=== PATIENT | male | born 1970 | race African-American/Black ===

== ENCOUNTER 2019-04-11 11:24 | Inpatient (IN) | payer MEDICAID ==
[~2019-04-11] VITALS: Ht 177.8 cm; Wt 79.8 kg
[~2019-04-11 11:24] MED LIST: AMLO5TAB88 PO; AZIT250T12 PO; CLON0.2T PO; CYCL5TAB PO; DEXL60CA3 PO; ESOM20CA PO; FOLI1TAB87 PO; GUAI120015 PO; LABE300T3 PO; MONT10TA24 PO; PANT40TA4 PO; REN800 PO; TRAM50TA3 PO
[2019-04-11] MEDS ORDERED: BACITRACIN 15GM TUBE TOP ONE (12:29)
[2019-04-11] MEDS ORDERED: LIDOCAINE HCL 1% 20ML VIAL (Pyxis) INJ ONE ×2 (12:29→15:39)
[2019-04-11] MEDS ORDERED: PAPAVERINE HCL 30 MG/ML 2ML IV ONE (12:29)
[2019-04-11] MEDS ORDERED: THROMBIN (BOVINE) 5000 UNITS/VIAL TOP ONE (12:30)
[2019-04-11] MEDS ORDERED: HEPARIN SODIUM 1,000 UNIT/1ML VIAL IV ONE (12:30)
[2019-04-11] MEDS ORDERED: BUPIVACAINE HCL/PF 0.5% (5MG/ML) 10ML ONE (12:31)
[2019-04-11] MEDS ORDERED: BACITRACIN 50,000 UNITS/VIAL ONE (12:31)
[2019-04-11] MEDS ORDERED: HEPARIN 5000 UNITS/ML VIAL ONE (12:34)
[2019-04-11 12:39] LABS: BASOPHILS % 0.9 % (0.0-2.0); EOSINOPHILS % 2.8 % (0.0-5.0); HEMATOCRIT. 28.8 % (42.0-52.0); HEMOGLOBIN. 9.5 g/dL (14.0-18.0); LYMPHOCYTES % 15.8 % (20.0-50.0); MEAN CORPUSCULAR VOLUME 91.5 fL (80.0-94.0); MEAN PLATELET VOLUME 7.4 fl (7.4-10.4); NEUTROPHILS % 68.5 % (40.0-76.0); PLATELET 189 x1000/uL (130-400); RED BLOOD CELL COUNT 3.15 mill/uL (4.7-6.1); RED CELL DISTRIBUTION WIDTH 22.3 % (11.6-14.6)
[2019-04-11 12:46] LABS: CHLORIDE 96 mEq/L (98-107)
[2019-04-11 12:51] LABS: INR 1.1; PROTHROMBIN TIME 11.5 sec (9.6-11.0)
[2019-04-11 12:55] LABS: PLATELET ESTIMATE NORMAL
[2019-04-11] MEDS ORDERED: ONDANSETRON HCL 4MG/2ML INJ IV PRN (13:00)
[2019-04-11] MEDS ORDERED: CALCIUM GLUCONATE 1,000 MG in DEXT 5% WATER 100 ML IV ONE (13:00)
[2019-04-11] MEDS ORDERED: DEXTROSE 50% WATER 50ML SYRINGE IV ONE (13:00)
[2019-04-11] MEDS ORDERED: SODIUM BICARBONATE 8.4% 1 MEQ/ML 50ML SYR IV ONE (13:00)
[2019-04-11] MEDS ORDERED: INSULIN REGULAR (HUMULIN R) 300UNITS/3ML IV ONE (13:00)
[2019-04-11] MEDS: ALBUTEROL (0.083%) 2.5MG/3ML NEB HHN SCH ×2 (13:15→13:49)
[2019-04-11 15:00] VITALS: BP 174/76
[2019-04-11 16:00] VITALS: BP 155/79
[2019-04-11] MEDS: HYDRALAZINE 20MG/ML VIAL IV PRN (16:52)
[2019-04-11] MEDS: NIFEDIPINE XL 60MG TAB PO SCH (18:00)
[2019-04-11 20:00] VITALS: BP 164/87
[2019-04-11] MEDS: CLONIDINE 0.1MG TABLET PO PRN (20:57)
[2019-04-12] VITALS: BP 176/96
[2019-04-12] MEDS: HYDRALAZINE 20MG/ML VIAL IV PRN (02:08)
[2019-04-12] MEDS: ACETAMINOPHEN 325MG TABLET PO PRN ×2 (02:09→09:36)
[2019-04-12 04:00] VITALS: BP 182/80
[2019-04-12] MEDS: CLONIDINE 0.1MG TABLET PO PRN ×2 (05:51→09:35)
[2019-04-12 07:47] LABS: BASOPHILS % 0.9 % (0.0-2.0); EOSINOPHILS % 2.6 % (0.0-5.0); HEMATOCRIT. 30.3 % (42.0-52.0); HEMOGLOBIN. 9.9 g/dL (14.0-18.0); LYMPHOCYTES % 17.7 % (20.0-50.0); MEAN CORPUSCULAR HEMOGLOBIN 29.6 pg (28.0-32.0); MEAN CORPUSCULAR VOLUME 90.8 fL (80.0-94.0); MEAN PLATELET VOLUME 7.4 fl (7.4-10.4); MONOCYTES % 10.7 % (2.0-8.0); NEUTROPHILS % 68.1 % (40.0-76.0); PLATELET 186 x1000/uL (130-400); RED BLOOD CELL COUNT 3.34 mill/uL (4.7-6.1); RED CELL DISTRIBUTION WIDTH 21.9 % (11.6-14.6)
[2019-04-12 08:00] VITALS: BP 191/84
[2019-04-12] MEDS: NIFEDIPINE XL 60MG TAB PO SCH ×2 (09:35→23:07)
[2019-04-12 12:00] VITALS: BP 171/92
[2019-04-12] MEDS ORDERED: HEPARIN 5000 UNITS/ML VIAL ONE (14:30)
[2019-04-12] MEDS ORDERED: HEPARIN SODIUM 1,000 UNIT/1ML VIAL IV ONE ×2 (14:32→19:04)
[2019-04-12] MEDS ORDERED: BACITRACIN 15GM TUBE TOP ONE (14:32)
[2019-04-12] MEDS ORDERED: LIDOCAINE HCL 1% 20ML VIAL (Pyxis) INJ ONE (14:32)
[2019-04-12] MEDS ORDERED: BUPIVACAINE HCL/PF 0.5% (5MG/ML) 10ML ONE (14:33)
[2019-04-12] MEDS ORDERED: BACITRACIN 50,000 UNITS/VIAL ONE (14:33)
[2019-04-12] MEDS ORDERED: THROMBIN (BOVINE) 5000 UNITS/VIAL TOP ONE (14:33)
[2019-04-12] MEDS ORDERED: PAPAVERINE HCL 30 MG/ML 2ML IV ONE (14:34)
[2019-04-12] MEDS: LOSARTAN POTASSIUM 100 MG TABLET PO SCH (14:58)
[2019-04-12] MEDS ORDERED: BUPIVACAINE HCL/EPINEPHRINE 0.5%/0.0005 30ML ONE (16:02)
[2019-04-12] MEDS ORDERED: LIDOCAINE HCL/PF 1% 10 MG/ML 5ML VIAL ONE (17:25)
[2019-04-12] MEDS ORDERED: CEFAZOLIN SODIUM 1000MG/VIAL ONE (17:25)
[2019-04-12] MEDS ORDERED: FENTANYL CITRATE/PF 50MCG/ML 2ML VIAL ONE ×2 (17:38→19:33)
[2019-04-12] MEDS ORDERED: MIDAZOLAM HCL 2 MG/2 ML VIAL ONE (17:39)
[2019-04-12] MEDS ORDERED: PROPOFOL 200MG/20ML VIAL IV ONE ×3 (17:39→18:21)
[2019-04-12] MEDS ORDERED: ONDANSETRON HCL 4MG/2ML INJ ONE (17:41)
[2019-04-12] MEDS ORDERED: GLYCOPYRROLATE 0.2 MG/ML 2ML VIAL ONE (18:09)
[2019-04-12] MEDS ORDERED: ESMOLOL HCL 10MG/ML 10ML VIAL IV ONE (18:10)
[2019-04-12] MEDS ORDERED: SODIUM CHLORIDE 0.9% 10ML VIAL ONE (18:45)
[2019-04-12] MEDS ORDERED: PHENYLEPHRINE HCL 10 MG/ML 1ML (IV VIAL) IV ONE (18:45)
[2019-04-12] MEDS ORDERED: MEPERIDINE HCL/PF 25MG/ML CPJ IV PRN (20:00)
[2019-04-12] MEDS ORDERED: HYDROMORPHONE HCL/PF 2MG/ML CPJ IV PRN (20:00)
[2019-04-12] MEDS ORDERED: ONDANSETRON HCL 4MG/2ML INJ IV PRN (20:00)
[2019-04-12 21:00] VITALS: BP 151/85
[2019-04-12] MEDS: HYDROCODONE/ACETAMINOPHEN 5/325MG TABLET PO PRN (23:08)
[2019-04-13] VITALS: BP 155/89
[2019-04-13 04:30] VITALS: BP 174/93
[2019-04-13] MEDS: HYDROCODONE/ACETAMINOPHEN 5/325MG TABLET PO PRN ×3 (05:14→15:56)
[2019-04-13] MEDS: CLONIDINE 0.1MG TABLET PO PRN (05:15)
[2019-04-13 08:00] VITALS: BP 163/82
[2019-04-13] MEDS: LOSARTAN POTASSIUM 100 MG TABLET PO SCH (09:00)
[2019-04-13] MEDS: NIFEDIPINE XL 60MG TAB PO SCH (09:00)
[2019-04-13 11:48] LABS: BASOPHILS % 0.5 % (0.0-2.0); EOSINOPHILS % 1.7 % (0.0-5.0); HEMATOCRIT. 28.3 % (42.0-52.0); HEMOGLOBIN. 9.2 g/dL (14.0-18.0); LYMPHOCYTES % 7.8 % (20.0-50.0); MEAN CORPUSCULAR HEMOGLOBIN 29.3 pg (28.0-32.0); MEAN CORPUSCULAR VOLUME 90.3 fL (80.0-94.0); MEAN PLATELET VOLUME 7.2 fl (7.4-10.4); MONOCYTES % 8.1 % (2.0-8.0); NEUTROPHILS % 81.9 % (40.0-76.0); PLATELET 186 x1000/uL (130-400); RED BLOOD CELL COUNT 3.13 mill/uL (4.7-6.1); RED CELL DISTRIBUTION WIDTH 22.2 % (11.6-14.6)
[2019-04-13 12:00] VITALS: BP 173/87
[2019-04-13 16:00] VITALS: BP 159/89
[2019-04-13 17:58] VITALS: BP 150/82
[2019-04-13] MEDS ORDERED: HYDRALAZINE HCL 50MG TABLET PO SCH (21:00)
== END 2019-04-13 19:09 | disposition home or self-care (01) | DRG 180 ==
LOC: ER 11:24 → EDBEDREQ 12:40 → ENRESERV 12:54 → 6WST 12:55 → EDBEDREQ 12:57 → EDBEDREQTM 12:58
PROVIDERS: ADMIT Internal Medicine; ATTEND Internal Medicine
PROC: 5A1D70Z Performance of Urinary Filtration, Intermittent, Less than 6 Hours Per Day (ICD-10-PCS; 2019-04-11)
PROC: 02HV33Z Insertion of Infusion Device into Superior Vena Cava, Percutaneous Approach (ICD-10-PCS; 2019-04-11)
PROC: 03180KD Bypass Left Brachial Artery to Upper Arm Vein with Nonautologous Tissue Substitute, Open Approach (ICD-10-PCS; principal; 2019-04-12)
PROC: 5A1D70Z Performance of Urinary Filtration, Intermittent, Less than 6 Hours Per Day (ICD-10-PCS; 2019-04-12)
DX: T82.838A Hemorrhage due to vascular prosthetic devices, implants and grafts, initial encounter (principal); E11.22 Type 2 diabetes mellitus with diabetic chronic kidney disease; E11.51 Type 2 diabetes mellitus with diabetic peripheral angiopathy without gangrene; T82.510A Breakdown (mechanical) of surgically created arteriovenous fistula, initial encounter; T82.858A Stenosis of other vascular prosthetic devices, implants and grafts, initial encounter; I12.0 Hypertensive chronic kidney disease with stage 5 chronic kidney disease or end stage renal disease; E87.5 Hyperkalemia; N18.6 End stage renal disease; Y82.8 Other medical devices associated with adverse incidents; E87.8 Other disorders of electrolyte and fluid balance, not elsewhere classified; E44.1 Mild protein-calorie malnutrition; D63.8 Anemia in other chronic diseases classified elsewhere; F17.210 Nicotine dependence, cigarettes, uncomplicated; G40.909 Epilepsy, unspecified, not intractable, without status epilepticus; Z68.25 Body mass index [BMI] 25.0-25.9, adult; Y92.89 Other specified places as the place of occurrence of the external cause; Z99.2 Dependence on renal dialysis; Z91.018 Allergy to other foods; Z79.899 Other long term (current) drug therapy
CPT/HCPCS: 36415; 71045; 77001; 80048; 84132; 86850; 86900; 87070; 87075; 87077; 87186; 88304; 93005; 94640; 96374; 99291; C1752; C1768; C1769; J0171; J0360; J0610; J0690; J1644; J1815; J2250; J2370; J2405; J2440; J2704; J3010; J3490; J7060; J7611; L3670

== ENCOUNTER 2019-04-15 17:43 | Emergency (ER) | payer MEDICAID, OTHER ==
[~2019-04-15] VITALS: Ht 175.3 cm; Wt 70.0 kg
[~2019-04-15 17:43] MED LIST changes: -AZIT250T12 PO
[2019-04-15 17:56] VITALS: BP 146/82
[2019-04-15 19:41] LABS: HEMATOCRIT. 26.5 % (42.0-52.0); HEMOGLOBIN. 8.8 g/dL (14.0-18.0); MEAN CORPUSCULAR HEMOGLOBIN 29.9 pg (28.0-32.0); MEAN PLATELET VOLUME 7.4 fl (7.4-10.4); PLATELET 153 x1000/uL (130-400); RED BLOOD CELL COUNT 2.94 mill/uL (4.7-6.1); RED CELL DISTRIBUTION WIDTH 21.5 % (11.6-14.6)
[2019-04-15 19:45] LABS: INR 1.1; PARTIAL THROMBOPLASTIN TIME 34.7 sec (23.4-31.0); PROTHROMBIN TIME 11.8 sec (9.6-11.0)
[2019-04-15 20:05] LABS: PLATELET ESTIMATE NORMAL
== END 2019-04-15 20:33 | disposition home or self-care (01) ==
LOC: ER 17:43
DX: T82.838A Hemorrhage due to vascular prosthetic devices, implants and grafts, initial encounter (principal); Y82.8 Other medical devices associated with adverse incidents; Y92.89 Other specified places as the place of occurrence of the external cause
CPT/HCPCS: 36415; 80048; 99283

== ENCOUNTER 2019-04-17 15:54 | Emergency (ER) | payer MEDICAID, OTHER ==
[~2019-04-17] VITALS: Ht 177.8 cm; Wt 74.0 kg
[2019-04-17] MEDS ORDERED: LIDOCAINE HCL/EPINEPHRINE 1%-EPI 1:100,000 30 ML VIAL INFIL ONE (18:00)
[2019-04-17 19:14] LABS: CHLORIDE 97 mEq/L (98-107)
[2019-04-17 19:15] LABS: BASOPHILS % 1.1 % (0.0-2.0); HEMATOCRIT. 24.5 % (42.0-52.0); HEMOGLOBIN. 8.1 g/dL (14.0-18.0); INR 1.2; LYMPHOCYTES % 9.1 % (20.0-50.0); MEAN CORPUSCULAR HEMOGLOBIN 29.8 pg (28.0-32.0); MEAN CORPUSCULAR VOLUME 89.8 fL (80.0-94.0); MEAN PLATELET VOLUME 7.7 fl (7.4-10.4); MONOCYTES % 10.9 % (2.0-8.0); NEUTROPHILS % 76.9 % (40.0-76.0); PLATELET 195 x1000/uL (130-400); PROTHROMBIN TIME 11.9 sec (9.6-11.0); RED BLOOD CELL COUNT 2.72 mill/uL (4.7-6.1); RED CELL DISTRIBUTION WIDTH 21.2 % (11.6-14.6)
[2019-04-17] MEDS ORDERED: LIDOCAINE HCL/EPINEPHRINE 1%-EPI 1:100,000 20 ML VIAL INFIL NR (19:30)
[2019-04-17] MEDS ORDERED: CALCIUM GLUCONATE 1,000 MG in DEXT 5% WATER 100 ML IV ONE (20:30)
[2019-04-17] MEDS ORDERED: INSULIN REGULAR (HUMULIN R) 300UNITS/3ML IV ONE (20:30)
[2019-04-17] MEDS ORDERED: DEXTROSE 50% WATER 50ML SYRINGE IV ONE (20:30)
[2019-04-17] MEDS ORDERED: SODIUM POLYSTYRENE SULFONATE 15 G/60 ML BOT PO ONE (20:30)
[2019-04-18 01:03] VITALS: BP 179/93
== END 2019-04-18 01:05 | disposition home or self-care (01) ==
LOC: ER 15:54
DX: T82.838A Hemorrhage due to vascular prosthetic devices, implants and grafts, initial encounter (principal); Y82.8 Other medical devices associated with adverse incidents; Y92.89 Other specified places as the place of occurrence of the external cause; I12.0 Hypertensive chronic kidney disease with stage 5 chronic kidney disease or end stage renal disease; N18.6 End stage renal disease; Z99.2 Dependence on renal dialysis
CPT/HCPCS: 36415; 73060; 80053; 82962; 85025; 85610; 93005; 99284; J0610; J1815; J3490; J7060

== ENCOUNTER 2019-04-23 19:30 | Inpatient (IN) | payer OTHER ==
[~2019-04-23] VITALS: Ht 177.8 cm; Wt 74.8 kg
[2019-04-23 19:30] VITALS: BP 121/81
[2019-04-23 19:35] VITALS: BP 121/81
[2019-04-23] MEDS ORDERED: ACETAMINOPHEN 325MG TABLET PO PRN (23:00)
[2019-04-23] MEDS ORDERED: ONDANSETRON HCL 4MG/2ML INJ IV PRN (23:00)
[2019-04-24] VITALS (9 sets, daily range): BP systolic 130–165; BP diastolic 67–81
[2019-04-24] MEDS: MORPHINE SULFATE 2 MG/ML CPJ (NOT FOR IM USE) IV PRN ×2 (00:05→06:55)
[2019-04-24 02:31] LABS: BASOPHILS % 0.5 % (0.0-2.0); LYMPHOCYTES % 9.1 % (20.0-50.0); MEAN CORPUSCULAR HEMOGLOBIN 28.6 pg (28.0-32.0); MEAN CORPUSCULAR VOLUME 87.2 fL (80.0-94.0); MEAN PLATELET VOLUME 7.3 fl (7.4-10.4); MONOCYTES % 9.1 % (2.0-8.0); NEUTROPHILS % 80.3 % (40.0-76.0); PLATELET 181 x1000/uL (130-400); RED BLOOD CELL COUNT 2.37 mill/uL (4.7-6.1); RED CELL DISTRIBUTION WIDTH 20.9 % (11.6-14.6)
[2019-04-24 02:38] LABS: HEMATOCRIT. 20.6 % (42.0-52.0); HEMOGLOBIN. 6.8 g/dL (14.0-18.0)
[2019-04-24 02:45] LABS: INR 1.2; PROTHROMBIN TIME 12.3 sec (9.6-11.0)
[2019-04-24] MEDS ORDERED: CLONIDINE 0.1MG TABLET PO PRN (03:45)
[2019-04-24] MEDS: DEXT 5%/0.45% NACL 1000ML 1,000 ML IV SCH (05:17)
[2019-04-24] MEDS: OMEPRAZOLE 20MG CAPSULE EXTENDED RELEASE PO SCH (07:10)
[2019-04-24] MEDS: SEVELAMER CARBONATE 800 MG TABLET PO SCH ×3 (07:40→17:40)
[2019-04-24] MEDS ORDERED: PNEUMOCOCCAL 23-VAL P-SAC VAC 0.5 ML IM ONE (08:00)
[2019-04-24] MEDS: FOLIC ACID/VITAMIN B COMP W-C TABLET PO SCH (09:00)
[2019-04-24] MEDS: AMLODIPINE 10MG TABLET PO SCH ×2 (09:00→20:55)
[2019-04-24] MEDS ORDERED: HYDROMORPHONE HCL/PF 2MG/ML CPJ IV PRN ×2 (09:15→18:45)
[2019-04-24] MEDS ORDERED: VANCOMYCIN 1500MG in DEXTROSE 5% WATER 250ML IV NR (10:30)
[2019-04-24] MEDS ORDERED: LEVOFLOXACIN 250MG PREMIX 50 ML IV SCH (11:00)
[2019-04-24] MEDS ORDERED: LEVOFLOXACIN 750MG PREMIX 150 ML IV SCH (12:15)
[2019-04-24 12:41] LABS: HEMATOCRIT 24.9 % (42.0-52.0); HEMOGLOBIN 8.2 g/dL (14.0-18.0)
[2019-04-24] MEDS: LEVOFLOXACIN 500MG PREMIX 100 ML IV SCH (14:00)
[2019-04-24] MEDS ORDERED: LIDOCAINE HCL 1% 20ML VIAL (Pyxis) INJ ONE (14:00)
[2019-04-24] MEDS: LABETALOL HCL 300MG TABLET PO SCH ×2 (14:00→21:00)
[2019-04-24] MEDS ORDERED: BUPIVACAINE HCL/PF 0.5% (5MG/ML) 10ML ONE (14:01)
[2019-04-24] MEDS ORDERED: HEPARIN SODIUM 1,000 UNIT/1ML VIAL IV ONE (14:01)
[2019-04-24] MEDS ORDERED: BACITRACIN 50,000 UNITS/VIAL ONE (14:01)
[2019-04-24] MEDS ORDERED: THROMBIN (BOVINE) 5000 UNITS/VIAL TOP ONE ×2 (14:01→17:40)
[2019-04-24] MEDS ORDERED: MIDAZOLAM HCL 2 MG/2 ML VIAL ONE (15:48)
[2019-04-24] MEDS ORDERED: FENTANYL CITRATE/PF 50MCG/ML 2ML VIAL ONE (15:48)
[2019-04-24] MEDS ORDERED: PROPOFOL 200MG/20ML VIAL IV ONE (15:48)
[2019-04-24] MEDS ORDERED: SODIUM CHLORIDE 0.9% 10ML VIAL ONE (15:49)
[2019-04-24] MEDS ORDERED: ROCURONIUM BROMIDE 10MG/ML VIAL 5ML IV ONE (15:49)
[2019-04-24] MEDS ORDERED: EPHEDRINE SULFATE 50MG/ML VIAL ONE (15:49)
[2019-04-24] MEDS ORDERED: PHENYLEPHRINE HCL 10 MG/ML 1ML (IV VIAL) IV ONE (15:52)
[2019-04-24] MEDS ORDERED: BACITRACIN 15GM TUBE TOP ONE (15:57)
[2019-04-24] MEDS ORDERED: CEFAZOLIN SODIUM 1000MG/VIAL ONE (16:56)
[2019-04-24] MEDS ORDERED: ONDANSETRON HCL 4MG/2ML INJ ONE (17:46)
[2019-04-24] MEDS ORDERED: MEPERIDINE HCL/PF 25MG/ML CPJ IV PRN (18:45)
[2019-04-24] MEDS ORDERED: LABETALOL 5MG/ML SYR 20 MG/4 ML SYRINGE IV PRN (18:45)
[2019-04-24] MEDS ORDERED: ONDANSETRON HCL 4MG/2ML INJ IV PRN (18:45)
[2019-04-25] VITALS: BP 145/81
[2019-04-25] MEDS: DEXT 5%/0.45% NACL 1000ML 1,000 ML IV SCH ×2 (00:30→20:34)
[2019-04-25] MEDS: EPOETIN ALFA 10000UNITS/ML VIAL SUBCUT SCH (00:38)
[2019-04-25] MEDS: HYDROMORPHONE HCL/PF 2MG/ML CPJ IV PRN ×3 (03:23→20:38)
[2019-04-25 04:00] VITALS: BP 134/76
[2019-04-25 06:52] LABS: BASOPHILS % 0.6 % (0.0-2.0); EOSINOPHILS % 1.4 % (0.0-5.0); HEMATOCRIT. 22.1 % (42.0-52.0); HEMOGLOBIN. 7.3 g/dL (14.0-18.0); LYMPHOCYTES % 7.1 % (20.0-50.0); MEAN CORPUSCULAR HEMOGLOBIN 29.3 pg (28.0-32.0); MEAN CORPUSCULAR VOLUME 89.2 fL (80.0-94.0); MEAN PLATELET VOLUME 7.3 fl (7.4-10.4); MONOCYTES % 7.9 % (2.0-8.0); PLATELET 201 x1000/uL (130-400); RED BLOOD CELL COUNT 2.48 mill/uL (4.7-6.1); RED CELL DISTRIBUTION WIDTH 20.3 % (11.6-14.6)
[2019-04-25] MEDS: OMEPRAZOLE 20MG CAPSULE EXTENDED RELEASE PO SCH (06:52)
[2019-04-25] MEDS: LABETALOL HCL 300MG TABLET PO SCH ×3 (06:52→21:05)
[2019-04-25 08:00] VITALS: BP 145/77
[2019-04-25] MEDS: SEVELAMER CARBONATE 800 MG TABLET PO SCH ×3 (08:26→16:20)
[2019-04-25] MEDS: FOLIC ACID/VITAMIN B COMP W-C TABLET PO SCH (08:26)
[2019-04-25] MEDS: AMLODIPINE 10MG TABLET PO SCH ×2 (09:19→20:35)
[2019-04-25 12:00] VITALS: BP 138/75
[2019-04-25 16:00] VITALS: BP 148/82
[2019-04-25 18:00] LABS: HEMATOCRIT 22.2 % (42.0-52.0); HEMOGLOBIN 7.4 g/dL (14.0-18.0); MEAN CORPUSCULAR HEMOGLOBIN 29.9 pg (28.0-32.0); PLATELET 194 x1000/uL (130-400); RED BLOOD CELL COUNT 2.47 mill/uL (4.7-6.1); RED CELL DISTRIBUTION WIDTH 20.6 % (11.6-14.6)
[2019-04-25 20:00] VITALS: BP 153/80
[2019-04-26] VITALS (10 sets, daily range): BP systolic 118–174; BP diastolic 67–92
[2019-04-26] MEDS: HYDROMORPHONE HCL/PF 2MG/ML CPJ IV PRN ×3 (00:45→20:31)
[2019-04-26] MEDS: DIPHENHYDRAMINE 50MG/ML VIAL IM PRN ×2 (00:46→14:42)
[2019-04-26] MEDS: LABETALOL HCL 300MG TABLET PO SCH ×3 (05:38→21:43)
[2019-04-26] MEDS: OMEPRAZOLE 20MG CAPSULE EXTENDED RELEASE PO SCH (05:58)
[2019-04-26] MEDS: FOLIC ACID/VITAMIN B COMP W-C TABLET PO SCH (08:36)
[2019-04-26] MEDS: SEVELAMER CARBONATE 800 MG TABLET PO SCH ×3 (08:36→18:01)
[2019-04-26] MEDS: AMLODIPINE 10MG TABLET PO SCH ×2 (08:38→21:44)
[2019-04-26 11:22] LABS: BASOPHILS % 0.6 % (0.0-2.0); EOSINOPHILS % 2.7 % (0.0-5.0); LYMPHOCYTES % 9.4 % (20.0-50.0); MEAN CORPUSCULAR HEMOGLOBIN 29.7 pg (28.0-32.0); MEAN CORPUSCULAR VOLUME 88.9 fL (80.0-94.0); MEAN PLATELET VOLUME 7.1 fl (7.4-10.4); MONOCYTES % 8.9 % (2.0-8.0); NEUTROPHILS % 78.4 % (40.0-76.0); PLATELET 217 x1000/uL (130-400); RED BLOOD CELL COUNT 2.29 mill/uL (4.7-6.1); RED CELL DISTRIBUTION WIDTH 20.4 % (11.6-14.6)
[2019-04-26 11:36] LABS: HEMATOCRIT. 20.4 % (42.0-52.0); HEMOGLOBIN. 6.8 g/dL (14.0-18.0)
[2019-04-26] MEDS ORDERED: HEPARIN SODIUM 1,000 UNIT/1ML VIAL IV NR (15:15)
[2019-04-26] MEDS ORDERED: VANCOMYCIN 1 G PREMIX 200 ML IV NR (18:00)
[2019-04-26] MEDS: LEVOFLOXACIN 500MG PREMIX 100 ML IV SCH (18:02)
[2019-04-26] MEDS: DEXT 5%/0.45% NACL 1000ML 1,000 ML IV SCH (18:02)
[2019-04-26] MEDS: EPOETIN ALFA 10000UNITS/ML VIAL SUBCUT SCH (21:00)
[2019-04-27] MEDS: DIPHENHYDRAMINE 50MG/ML VIAL IM PRN (00:53)
[2019-04-27 00:54] VITALS: BP 119/82
[2019-04-27] MEDS: HYDROMORPHONE HCL/PF 2MG/ML CPJ IV PRN (00:54)
== END 2019-04-27 04:30 | disposition left against medical advice (07) | DRG 182 ==
LOC: 6EST 19:30 → UNDOADMIN 19:30 → 8 EST A/PP 20:55 → 8WST 21:25
PROVIDERS: ADMIT Internal Medicine; ATTEND Internal Medicine
PROC: 5A1D70Z Performance of Urinary Filtration, Intermittent, Less than 6 Hours Per Day (ICD-10-PCS; 2019-04-24)
PROC: 03L80ZZ Occlusion of Left Brachial Artery, Open Approach (ICD-10-PCS; principal; 2019-04-25)
PROC: 30233N1 Transfusion of Nonautologous Red Blood Cells into Peripheral Vein, Percutaneous Approach (ICD-10-PCS; 2019-04-25)
PROC: 03PY0JZ Removal of Synthetic Substitute from Upper Artery, Open Approach (ICD-10-PCS; 2019-04-25)
PROC: 05LC0ZZ Occlusion of Left Basilic Vein, Open Approach (ICD-10-PCS; 2019-04-25)
PROC: 05PY0JZ Removal of Synthetic Substitute from Upper Vein, Open Approach (ICD-10-PCS; 2019-04-25)
PROC: 5A1D70Z Performance of Urinary Filtration, Intermittent, Less than 6 Hours Per Day (ICD-10-PCS; 2019-04-25)
DX: T82.7XXA Infection and inflammatory reaction due to other cardiac and vascular devices, implants and grafts, initial encounter (principal); A41.59 Other Gram-negative sepsis; I12.0 Hypertensive chronic kidney disease with stage 5 chronic kidney disease or end stage renal disease; T82.838A Hemorrhage due to vascular prosthetic devices, implants and grafts, initial encounter; F17.200 Nicotine dependence, unspecified, uncomplicated; D50.0 Iron deficiency anemia secondary to blood loss (chronic); D63.1 Anemia in chronic kidney disease; N18.6 End stage renal disease; Y83.2 Surgical operation with anastomosis, bypass or graft as the cause of abnormal reaction of the patient, or of later complication, without mention of misadventure at the time of the procedure; Z99.2 Dependence on renal dialysis; L03.114 Cellulitis of left upper limb; I73.9 Peripheral vascular disease, unspecified; Y83.8 Other surgical procedures as the cause of abnormal reaction of the patient, or of later complication, without mention of misadventure at the time of the procedure; Y92.89 Other specified places as the place of occurrence of the external cause
CPT/HCPCS: 36415; 80048; 80202; 85014; 85018; 85027; 86850; 86900; 86920; 88300; 93005; 97161; C1884; J0690; J0885; J1170; J1200; J1644; J1956; J2250; J2270; J2370; J2405; J2704; J3010; J3370; J3490; J7040; J7060; P9016; P9021

== ENCOUNTER 2019-05-09 17:16 | Inpatient (IN) | payer OTHER ==
[~2019-05-09] VITALS: Ht 182.9 cm; Wt 73.5 kg
[2019-05-09] MEDS ORDERED: FAMOTIDINE 20MG/2ML VIAL IV STA (19:23)
[2019-05-09] MEDS ORDERED: MORPHINE SULFATE 4 MG/ML CPJ (NOT FOR IM USE) IV STA (19:23)
[2019-05-09] MEDS ORDERED: ONDANSETRON HCL 4MG/2ML INJ IV STA (19:23)
[2019-05-09] MEDS ORDERED: HYDRALAZINE 20MG/ML VIAL IV ONE (19:30)
[2019-05-09 19:59] LABS: BASOPHILS % 0.9 % (0.0-2.0); EOSINOPHILS % 1.5 % (0.0-5.0); LYMPHOCYTES % 10.6 % (20.0-50.0); MEAN CORPUSCULAR VOLUME 89.8 fL (80.0-94.0); MEAN PLATELET VOLUME 6.7 fl (7.4-10.4); MONOCYTES % 9.4 % (2.0-8.0); NEUTROPHILS % 77.6 % (40.0-76.0); PLATELET 203 x1000/uL (130-400); RED BLOOD CELL COUNT 4.01 mill/uL (4.7-6.1); RED CELL DISTRIBUTION WIDTH 21.9 % (11.6-14.6)
[2019-05-09 20:01] LABS: CHLORIDE 99 mEq/L (98-107)
[2019-05-09 20:03] LABS: INR 1.1; PROTHROMBIN TIME 11.2 sec (9.6-11.0)
[2019-05-09 20:06] LABS: ETHANOL BLOOD < 10 mg/dL
[2019-05-09] MEDS ORDERED: SODIUM POLYSTYRENE SULFONATE 15 G/60 ML BOT PO ONE (20:45)
[2019-05-10] MEDS ORDERED: HYDRALAZINE 20MG/ML VIAL IV ONE
[2019-05-10] MEDS ORDERED: CLON1PAT11 TP (01:30)
[2019-05-10 01:31] VITALS: BP 194/112
[2019-05-10] MEDS ORDERED: ONDANSETRON HCL 4MG/2ML INJ IV PRN (02:15)
[2019-05-10] MEDS ORDERED: CLONIDINE 0.1MG TABLET PO PRN (02:30)
[2019-05-10] MEDS: LABETALOL HCL 100MG TABLET PO SCH ×4 (02:39→17:19)
[2019-05-10] MEDS: TRAMADOL 50MG TABLET PO PRN ×2 (02:46→08:22)
[2019-05-10 04:00] VITALS: BP 211/133
[2019-05-10] MEDS ORDERED: SEVELAMER HCL PO SCH (07:50)
[2019-05-10 08:00] VITALS: BP 202/128
[2019-05-10] MEDS: FOLIC ACID/VITAMIN B COMP W-C TABLET PO SCH (08:19)
[2019-05-10] MEDS: SEVELAMER CARBONATE 800 MG TABLET PO SCH ×3 (08:20→17:18)
[2019-05-10] MEDS: PANTOPRAZOLE 40MG DR TABLET PO SCH (08:21)
[2019-05-10] MEDS ORDERED: AMLODIPINE 5MG TABLET PO SCH (09:00)
[2019-05-10] MEDS ORDERED: CLONIDINE HCL 0.2MG/24HR PATCH TD SCH (09:00)
[2019-05-10] MEDS ORDERED: MEDICATION NOT ON FORMULARY EA (Folic Acid/Vitamin B Comp W-C (Rena-Vite Rx Tablet) 1 MG PO SCH (09:00)
[2019-05-10] MEDS ORDERED: ESOMEPRAZOLE MAG TRIHYDRATE 10 MG PO SCH (09:00)
[2019-05-10] MEDS ORDERED: MORPHINE SULFATE 2 MG/ML CPJ (NOT FOR IM USE) IV PRN (09:00)
[2019-05-10] MEDS ORDERED: HYDRALAZINE 20MG/ML VIAL IV PRN (09:00)
[2019-05-10] MEDS: LOSARTAN POTASSIUM 100 MG TABLET PO SCH ×2 (10:00→17:18)
[2019-05-10] MEDS: NIFEDIPINE XL 60MG TAB PO SCH ×3 (11:00→20:53)
[2019-05-10 12:00] VITALS: BP 212/116
[2019-05-10] MEDS ORDERED: HEPARIN SODIUM 1,000 UNIT/1ML VIAL IV SCH (12:00)
[2019-05-10] MEDS: DIPHENHYDRAMINE 50MG/ML VIAL IV PRN (12:47)
[2019-05-10 16:00] VITALS: BP 151/105
[2019-05-10] MEDS ORDERED: LABETALOL 5MG/ML SYR 20 MG/4 ML SYRINGE IV SCH (18:00)
[2019-05-10 20:00] VITALS: BP 153/94
[2019-05-10] MEDS: HYDRALAZINE HCL 100MG TABLET PO SCH (20:53)
[2019-05-10] MEDS: MAGNESIUM/ALUMINUM HYDROXIDE/SIMETHICONE 30ML UDC PO PRN (20:53)
[2019-05-11] VITALS: BP 133/82
[2019-05-11 04:00] VITALS: BP 149/86
[2019-05-11] MEDS: DIPHENHYDRAMINE 50MG/ML VIAL IV PRN (04:45)
[2019-05-11] MEDS: PANTOPRAZOLE 40MG DR TABLET PO SCH (06:04)
[2019-05-11] MEDS: MAGNESIUM/ALUMINUM HYDROXIDE/SIMETHICONE 30ML UDC PO PRN (06:22)
[2019-05-11 08:00] VITALS: BP 180/110
[2019-05-11] MEDS: LABETALOL HCL 100MG TABLET PO SCH ×2 (08:21→12:18)
[2019-05-11] MEDS: FOLIC ACID/VITAMIN B COMP W-C TABLET PO SCH (08:21)
[2019-05-11] MEDS: LOSARTAN POTASSIUM 100 MG TABLET PO SCH (08:21)
[2019-05-11] MEDS: HYDRALAZINE HCL 100MG TABLET PO SCH (08:21)
[2019-05-11] MEDS: NIFEDIPINE XL 60MG TAB PO SCH (08:21)
[2019-05-11] MEDS: SEVELAMER CARBONATE 800 MG TABLET PO SCH ×2 (08:25→12:19)
[2019-05-11 09:45] VITALS: BP 123/85
[2019-05-11 12:00] VITALS: BP 126/75
[2019-05-11] MEDS ORDERED: HYDR100T26 MT (12:22)
[2019-05-11] MEDS ORDERED: NIFE60TA64 PO (12:22)
[2019-05-11 12:48] VITALS: BP 126/75
[2019-05-11] MEDS ORDERED: SODIUM POLYSTYRENE SULFONATE 15 G/60 ML BOT PO NR (17:00)
== END 2019-05-11 15:00 | disposition home or self-care (01) | DRG 470 ==
LOC: ER 17:16 → 6WST 21:35 → EDBEDREQTM 21:39 → EDBEDREQ 21:39 → ENRESERV 23:11
PROVIDERS: ADMIT Internal Medicine; ATTEND Internal Medicine
PROC: 5A1D70Z Performance of Urinary Filtration, Intermittent, Less than 6 Hours Per Day (ICD-10-PCS; principal; 2019-05-10)
DX: I12.0 Hypertensive chronic kidney disease with stage 5 chronic kidney disease or end stage renal disease (principal); N18.6 End stage renal disease; E87.5 Hyperkalemia; Q61.3 Polycystic kidney, unspecified; I16.0 Hypertensive urgency; D63.1 Anemia in chronic kidney disease; J44.9 Chronic obstructive pulmonary disease, unspecified; Z87.11 Personal history of peptic ulcer disease; Z88.9 Allergy status to unspecified drugs, medicaments and biological substances; Z91.14 Patient's other noncompliance with medication regimen; Z99.2 Dependence on renal dialysis
CPT/HCPCS: 36415; 71045; 74176; 80048; 80320; 83880; 84484; 86850; 86900; 93005; 99285; J0360; J1200; J1644; J2270; J2405; J3490; G0480

== ENCOUNTER 2019-08-19 23:11 | Inpatient (IN) | payer MEDICAID ==
[~2019-08-19] VITALS: Ht 175.3 cm; Wt 78.0 kg
[~2019-08-19 23:11] MED LIST changes: +AMLO5TAB88 MT; -AMLO5TAB88 PO; -CLON0.2T PO; -DEXL60CA3 PO; +FOLI1TAB87 MT; -FOLI1TAB87 PO; +HYDR-4001 MT; +HYDR-4009 PO; +HYDR100T26 MT; +LABE200T28 MT; -LABE300T3 PO; +METO-293 MT; -MONT10TA24 PO; +MONT10TA26 PO; +ONDA4TAB5 MT; -PANT40TA4 PO; -TRAM50TA3 PO
[2019-08-20] MEDS ORDERED: KETOROLAC 30MG/ML VIAL IV STA (02:20)
[2019-08-20] MEDS ORDERED: VANCOMYCIN 1 G PREMIX 200 ML IV ONE (02:30)
[2019-08-20] MEDS ORDERED: PIPERACILLIN/TAZ 3.375G PREMIX 50 ML IV ONE (02:30)
[2019-08-20] MEDS ORDERED: SODIUM CHLORIDE 0.9% 1000ML BAG (SEPSIS BOLUS) IV ONE (02:30)
[2019-08-20 02:44] LABS: BASOPHILS % 0.8 % (0.0-2.0); EOSINOPHILS % 2.8 % (0.0-5.0); HEMATOCRIT. 32.4 % (42.0-52.0); HEMOGLOBIN. 10.6 g/dL (14.0-18.0); LYMPHOCYTES % 12.6 % (20.0-50.0); MEAN CORPUSCULAR HEMOGLOBIN 30.5 pg (28.0-32.0); MEAN CORPUSCULAR VOLUME 93.4 fL (80.0-94.0); MEAN PLATELET VOLUME 8.3 fl (7.4-10.4); NEUTROPHILS % 71.8 % (40.0-76.0); PLATELET 298 x1000/uL (130-400); RED BLOOD CELL COUNT 3.47 mill/uL (4.7-6.1); RED CELL DISTRIBUTION WIDTH 19.3 % (11.6-14.6)
[2019-08-20 02:50] LABS: CHLORIDE 93 mEq/L (98-107)
[2019-08-20 02:57] LABS: INR 1.1; PROTHROMBIN TIME 11.4 sec (9.6-11.0)
[2019-08-20] MEDS ORDERED: DIPHENHYDRAMINE 50MG/ML VIAL IV PRN (09:45)
[2019-08-20] MEDS ORDERED: IPRATROPIUM/ALBUTEROL 0.5-3(2.5)MG/3ML NEB HHN PRN (09:45)
[2019-08-20] MEDS ORDERED: ONDANSETRON HCL 4MG/2ML INJ IV PRN (09:45)
[2019-08-20] MEDS ORDERED: ACETAMINOPHEN 325MG TABLET PO PRN (09:45)
[2019-08-20 10:03] LABS: PHOSPHORUS 8.3 mg/dL (2.5-4.9)
[2019-08-20] MEDS ORDERED: PIPERACILLIN/TAZOBACTAM 2.25 G in DEXTROSE 5% WATER 50 ML IV NR (11:00)
[2019-08-20] MEDS: SEVELAMER CARBONATE 800 MG TABLET PO SCH ×4 (14:26→17:27)
[2019-08-20] MEDS: CLONIDINE 0.1MG TABLET PO PRN (17:25)
[2019-08-20 17:45] VITALS: BP 172/96
[2019-08-20] MEDS: PIPERACILLIN/TAZOBACTAM 2.25 G in DEXTROSE 5% WATER 50 ML IV SCH (19:50)
[2019-08-20 20:00] VITALS: BP 158/92
[2019-08-20] MEDS ORDERED: PIPERACILLIN/TAZ 3.375G PREMIX 50 ML IV SCH (21:00)
[2019-08-20] MEDS: MAGNESIUM/ALUMINUM HYDROXIDE/SIMETHICONE 30ML UDC PO PRN (21:28)
[2019-08-20] MEDS: HYDROCODONE/ACETAMINOPHEN 10/325MG TABLET PO PRN (21:40)
[2019-08-20] MEDS: DIPHENHYDRAMINE 50MG/ML VIAL IV PRN (23:09)
[2019-08-21] VITALS: BP 174/90
[2019-08-21] MEDS ORDERED: VANCOMYCIN 500 MG PREMIX 100 ML IV SCH
[2019-08-21] MEDS: CLONIDINE 0.1MG TABLET PO PRN (02:24)
[2019-08-21] MEDS: PIPERACILLIN/TAZOBACTAM 2.25 G in DEXTROSE 5% WATER 50 ML IV SCH ×2 (03:03→12:43)
[2019-08-21 07:03] LABS: CHLORIDE 94 mEq/L (98-107)
[2019-08-21 07:09] LABS: BASOPHILS % 0.8 % (0.0-2.0); EOSINOPHILS % 4.2 % (0.0-5.0); HEMATOCRIT. 27.4 % (42.0-52.0); HEMOGLOBIN. 9.1 g/dL (14.0-18.0); LYMPHOCYTES % 17.5 % (20.0-50.0); MEAN CORPUSCULAR HEMOGLOBIN 30.5 pg (28.0-32.0); MEAN CORPUSCULAR VOLUME 92.2 fL (80.0-94.0); MEAN PLATELET VOLUME 7.7 fl (7.4-10.4); MONOCYTES % 12.4 % (2.0-8.0); NEUTROPHILS % 65.1 % (40.0-76.0); PLATELET 253 x1000/uL (130-400); RED BLOOD CELL COUNT 2.97 mill/uL (4.7-6.1); RED CELL DISTRIBUTION WIDTH 19.1 % (11.6-14.6)
[2019-08-21 07:27] LABS: LDL CHOLESTEROL 57 mg/dL (5-100)
[2019-08-21 07:29] LABS: HDL CHOLESTEROL 49 mg/dL (40-59)
[2019-08-21 08:00] VITALS: BP 172/84
[2019-08-21] MEDS: FOLIC ACID/VITAMIN B COMP W-C TABLET PO SCH (08:26)
[2019-08-21] MEDS: OMEPRAZOLE 20MG CAPSULE EXTENDED RELEASE PO SCH (08:27)
[2019-08-21] MEDS: HYDROCODONE/ACETAMINOPHEN 10/325MG TABLET PO PRN ×2 (08:28→17:08)
[2019-08-21] MEDS: SEVELAMER CARBONATE 800 MG TABLET PO SCH ×3 (09:06→17:11)
[2019-08-21 12:00] VITALS: BP 172/92
[2019-08-21] MEDS: METOCLOPRAMIDE HCL 10MG TABLET PO SCH ×2 (12:43→16:51)
[2019-08-21] MEDS: AMLODIPINE 5MG TABLET PO SCH (12:43)
[2019-08-21] MEDS: HYDRALAZINE HCL 100MG TABLET PO SCH ×2 (13:00→16:57)
[2019-08-21 16:00] VITALS: BP 181/96
[2019-08-21] MEDS: LABETALOL HCL 200MG TABLET PO SCH (16:57)
[2019-08-21] MEDS ORDERED: VANCOMYCIN 750 MG PREMIX 150 ML IV NR (17:00)
[2019-08-21] MEDS: MAGNESIUM/ALUMINUM HYDROXIDE/SIMETHICONE 30ML UDC PO PRN (17:06)
[2019-08-21] MEDS: MONTELUKAST SODIUM 10MG TABLET PO SCH (17:07)
[2019-08-21] MEDS ORDERED: EPOETIN ALFA 4000UNITS/ML VIAL SUBCUT SCH (21:00)
[2019-08-21] MEDS: DIPHENHYDRAMINE 50MG/ML VIAL IV PRN (22:25)
[2019-08-21 23:58] VITALS: BP 156/106
[2019-08-22 00:55] VITALS: BP 156/106
[2019-08-22] MEDS: PIPERACILLIN/TAZOBACTAM 2.25 G in DEXTROSE 5% WATER 50 ML IV SCH ×4 (04:23→12:47)
[2019-08-22 06:40] VITALS: BP 167/96
[2019-08-22] MEDS: OMEPRAZOLE 20MG CAPSULE EXTENDED RELEASE PO SCH (06:44)
[2019-08-22] MEDS: CLONIDINE 0.1MG TABLET PO PRN (06:55)
[2019-08-22 08:00] VITALS: BP 176/91
[2019-08-22] MEDS: FOLIC ACID/VITAMIN B COMP W-C TABLET PO SCH (08:54)
[2019-08-22] MEDS: SEVELAMER CARBONATE 800 MG TABLET PO SCH ×3 (08:54→18:31)
[2019-08-22] MEDS: METOCLOPRAMIDE HCL 10MG TABLET PO SCH ×3 (08:54→18:31)
[2019-08-22] MEDS: AMLODIPINE 5MG TABLET PO SCH (08:55)
[2019-08-22] MEDS: HYDRALAZINE HCL 100MG TABLET PO SCH ×3 (08:56→18:31)
[2019-08-22] MEDS: LABETALOL HCL 200MG TABLET PO SCH ×2 (08:56→18:32)
[2019-08-22 10:57] LABS: EOSINOPHILS % 3.7 % (0.0-5.0); HEMATOCRIT. 29.4 % (42.0-52.0); HEMOGLOBIN. 9.6 g/dL (14.0-18.0); LYMPHOCYTES % 10.8 % (20.0-50.0); MEAN CORPUSCULAR HEMOGLOBIN 30.5 pg (28.0-32.0); MEAN CORPUSCULAR VOLUME 93.2 fL (80.0-94.0); MEAN PLATELET VOLUME 7.1 fl (7.4-10.4); MONOCYTES % 13.8 % (2.0-8.0); NEUTROPHILS % 70.7 % (40.0-76.0); PLATELET 249 x1000/uL (130-400); RED BLOOD CELL COUNT 3.15 mill/uL (4.7-6.1); RED CELL DISTRIBUTION WIDTH 19.5 % (11.6-14.6)
[2019-08-22] MEDS ORDERED: AMOX1TAB16 MT (11:14)
[2019-08-22] MEDS ORDERED: DOXY100C2 MT (11:14)
[2019-08-22 12:00] VITALS: BP 137/87
[2019-08-22] MEDS: HYDROCODONE/ACETAMINOPHEN 10/325MG TABLET PO PRN ×2 (13:08)
[2019-08-22] MEDS: DIPHENHYDRAMINE 50MG/ML VIAL IV PRN (13:12)
[2019-08-22 16:00] VITALS: BP 136/76
[2019-08-22 16:09] VITALS: BP 132/80
[2019-08-22] MEDS: MONTELUKAST SODIUM 10MG TABLET PO SCH (18:31)
[2019-08-23] MEDS ORDERED: FAMOTIDINE 20MG TABLET PO SCH (07:40)
== END 2019-08-22 18:49 | disposition home health service (06) | DRG 721 ==
LOC: ER 23:11 → 7WST 08-20 05:48 → CANRESERV 08-20 07:47 → ENRESERV 08-20 07:47
PROVIDERS: ADMIT Internal Medicine; ATTEND Internal Medicine
PROC: 5A1D70Z Performance of Urinary Filtration, Intermittent, Less than 6 Hours Per Day (ICD-10-PCS; principal; 2019-08-20)
DX: T81.41XA Infection following a procedure, superficial incisional surgical site, initial encounter (principal); E46 Unspecified protein-calorie malnutrition; I12.0 Hypertensive chronic kidney disease with stage 5 chronic kidney disease or end stage renal disease; E83.39 Other disorders of phosphorus metabolism; T81.31XA Disruption of external operation (surgical) wound, not elsewhere classified, initial encounter; E83.41 Hypermagnesemia; N18.6 End stage renal disease; L03.115 Cellulitis of right lower limb; E83.42 Hypomagnesemia; T81.44XA Sepsis following a procedure, initial encounter; D63.1 Anemia in chronic kidney disease; J45.909 Unspecified asthma, uncomplicated; K21.9 Gastro-esophageal reflux disease without esophagitis; Y83.8 Other surgical procedures as the cause of abnormal reaction of the patient, or of later complication, without mention of misadventure at the time of the procedure; Y92.89 Other specified places as the place of occurrence of the external cause; Z99.2 Dependence on renal dialysis; Z79.899 Other long term (current) drug therapy; Z87.891 Personal history of nicotine dependence; Z68.25 Body mass index [BMI] 25.0-25.9, adult
CPT/HCPCS: 36415; 73700; 80048; 80053; 80061; 80202; 83605; 83735; 84100; 84145; 84443; 84484; 85025; 93005; 93970; 99285; J0885; J1200; J1885; J2543; J3370; J7030; J7060; J8597

== ENCOUNTER 2019-11-03 14:31 | Inpatient (IN) | payer MEDICAID ==
[~2019-11-03] VITALS: Ht 177.8 cm; Wt 84.4 kg
[~2019-11-03 14:31] MED LIST changes: +AMOX1TAB16 MT; +DOXY100C2 MT; -GUAI120015 PO; -HYDR-4001 MT
[2019-11-03] MEDS ORDERED: PIPERACILLIN/TAZ 3.375G PREMIX 50 ML IV ONE (15:00)
[2019-11-03] MEDS ORDERED: VANCOMYCIN 1 G PREMIX 200 ML IV ONE (15:00)
[2019-11-03] MEDS ORDERED: OXYCODONE HCL/ACETAMINOPHEN 5/325MG TABLET PO ONE (15:30)
[2019-11-03 15:52] LABS: CHLORIDE 98 mEq/L (98-107)
[2019-11-03 15:55] LABS: INR 1.1; PROTHROMBIN TIME 12.4 sec (9.6-11.0)
[2019-11-03 16:00] LABS: EOSINOPHILS % 1.7 % (0.0-5.0); LYMPHOCYTES % 8.2 % (20.0-50.0); MEAN CORPUSCULAR HEMOGLOBIN 30.7 pg (28.0-32.0); MEAN CORPUSCULAR VOLUME 94.4 fL (80.0-94.0); MEAN PLATELET VOLUME 8.2 fl (7.4-10.4); MONOCYTES % 8.4 % (2.0-8.0); NEUTROPHILS % 80.7 % (40.0-76.0); PLATELET 319 x1000/uL (130-400); RED BLOOD CELL COUNT 1.09 mill/uL (4.7-6.1); RED CELL DISTRIBUTION WIDTH 20.2 % (11.6-14.6)
[2019-11-03 16:15] LABS: HEMATOCRIT. 10.3 % (42.0-52.0); HEMOGLOBIN. 3.3 g/dL (14.0-18.0)
[2019-11-03] MEDS ORDERED: ONDANSETRON HCL 4MG/2ML INJ IV PRN (19:15)
[2019-11-03] MEDS ORDERED: LORAZEPAM 0.5MG TABLET PO PRN (19:15)
[2019-11-03] MEDS ORDERED: ACETAMINOPHEN 325MG TABLET PO PRN (19:15)
[2019-11-03] MEDS ORDERED: CLONIDINE 0.1MG TABLET PO PRN (19:15)
[2019-11-03] MEDS ORDERED: DOCUSATE SODIUM 100MG CAPSULE PO PRN (19:15)
[2019-11-03] MEDS ORDERED: IPRATROPIUM/ALBUTEROL 0.5-3(2.5)MG/3ML NEB HHN PRN (19:15)
[2019-11-03] MEDS ORDERED: PANTOPRAZOLE SODIUM 40 MG/VIAL IV SCH (22:45)
[2019-11-03 23:02] LABS: CREATINE KINASE MB FRACTION 7.6 ng/mL (0.5-3.6)
[2019-11-03] MEDS: HYDROCODONE/ACETAMINOPHEN 5/325MG TABLET PO PRN (23:15)
[2019-11-04] VITALS (9 sets, daily range): BP systolic 102–155; BP diastolic 63–94
[2019-11-04 00:03] LABS: HEMATOCRIT 21.1 % (42.0-52.0); HEMOGLOBIN 7.1 g/dL (14.0-18.0); MEAN CORPUSCULAR HEMOGLOBIN 29.8 pg (28.0-32.0); PLATELET 301 x1000/uL (130-400); RED BLOOD CELL COUNT 2.37 mill/uL (4.7-6.1); RED CELL DISTRIBUTION WIDTH 17.9 % (11.6-14.6)
[2019-11-04 04:53] LABS: BASOPHILS % 0.9 % (0.0-2.0); LYMPHOCYTES % 10.9 % (20.0-50.0); MEAN CORPUSCULAR HEMOGLOBIN 29.9 pg (28.0-32.0); MEAN CORPUSCULAR VOLUME 88.3 fL (80.0-94.0); MEAN PLATELET VOLUME 7.4 fl (7.4-10.4); MONOCYTES % 8.9 % (2.0-8.0); NEUTROPHILS % 77.3 % (40.0-76.0); PLATELET 294 x1000/uL (130-400); RED BLOOD CELL COUNT 2.13 mill/uL (4.7-6.1); RED CELL DISTRIBUTION WIDTH 17.9 % (11.6-14.6)
[2019-11-04 04:59] LABS: HEMATOCRIT. 18.8 % (42.0-52.0); HEMOGLOBIN. 6.4 g/dL (14.0-18.0)
[2019-11-04 05:04] LABS: PHOSPHORUS 5.8 mg/dL (2.5-4.9)
[2019-11-04] MEDS: HYDROCODONE/ACETAMINOPHEN 5/325MG TABLET PO PRN ×2 (06:03→11:55)
[2019-11-04] MEDS ORDERED: PIPERACILLIN/TAZOBACTAM 2.25 G in DEXTROSE 5% WATER 50 ML IV SCH (06:15)
[2019-11-04] MEDS: FOLIC ACID/VITAMIN B COMP W-C TABLET PO SCH (09:51)
[2019-11-04] MEDS: PANTOPRAZOLE SODIUM 40 MG/VIAL IV SCH ×2 (09:51→17:00)
[2019-11-04] MEDS ORDERED: MORPHINE SULFATE 2 MG/ML CPJ (NOT FOR IM USE) IV PRN (13:15)
[2019-11-04] MEDS ORDERED: PIPERACILLIN/TAZOBACTAM 3.375 G/VIAL IV SCH (14:00)
[2019-11-04] MEDS: DIPHENHYDRAMINE 50MG/ML VIAL IV PRN ×2 (17:35→23:47)
[2019-11-04] MEDS: HYDROCODONE/ACETAMINOPHEN 10/325MG TABLET PO PRN (20:09)
[2019-11-04] MEDS ORDERED: EPOETIN ALFA 10000UNITS/ML VIAL SUBCUT SCH (21:00)
[2019-11-04] MEDS: PIPERACILLIN/TAZOBACTAM 2.25 G in DEXTROSE 5% WATER 50 ML IV SCH (21:00)
[2019-11-04] MEDS: METOPROLOL TARTRATE 50MG TABLET PO SCH (21:00)
[2019-11-04] MEDS: IRON SUCROSE COMPLEX 100 MG/5 ML ML IV SCH (21:01)
[2019-11-04 21:37] LABS: HEMATOCRIT 31.1 % (42.0-52.0); HEMOGLOBIN 10.3 g/dL (14.0-18.0); MEAN CORPUSCULAR HEMOGLOBIN 29.7 pg (28.0-32.0); MEAN CORPUSCULAR VOLUME 89.7 fL (80.0-94.0); PLATELET 288 x1000/uL (130-400); RED BLOOD CELL COUNT 3.46 mill/uL (4.7-6.1); RED CELL DISTRIBUTION WIDTH 16.4 % (11.6-14.6)
[2019-11-04 23:46] LABS: HEMATOCRIT 29.1 % (42.0-52.0); HEMOGLOBIN 9.9 g/dL (14.0-18.0); MEAN CORPUSCULAR HEMOGLOBIN 30.5 pg (28.0-32.0); MEAN CORPUSCULAR VOLUME 89.4 fL (80.0-94.0); PLATELET 282 x1000/uL (130-400); RED BLOOD CELL COUNT 3.25 mill/uL (4.7-6.1); RED CELL DISTRIBUTION WIDTH 16.3 % (11.6-14.6)
[2019-11-04] MEDS: DEXT 5%/0.45% NACL 1000ML 1,000 ML IV SCH (23:47)
[2019-11-05] VITALS (10 sets, daily range): BP systolic 119–159; BP diastolic 76–92
[2019-11-05] MEDS: HYDROMORPHONE HCL/PF 2MG/ML CPJ IV PRN ×3 (03:34→23:46)
[2019-11-05] MEDS: CINACALCET HCL 30MG TABLET PO SCH (05:48)
[2019-11-05] MEDS: PIPERACILLIN/TAZOBACTAM 2.25 G in DEXTROSE 5% WATER 50 ML IV SCH ×3 (05:48→21:09)
[2019-11-05] MEDS ORDERED: LIDOCAINE HCL 1% 20ML VIAL (Pyxis) INJ ONE (08:46)
[2019-11-05] MEDS: METOPROLOL TARTRATE 50MG TABLET PO SCH ×2 (10:37→21:09)
[2019-11-05] MEDS: IRON SUCROSE COMPLEX 100 MG/5 ML ML IV SCH (10:37)
[2019-11-05] MEDS: PANTOPRAZOLE SODIUM 40 MG/VIAL IV SCH ×2 (10:39→18:26)
[2019-11-05] MEDS ORDERED: IOHEXOL-350 100 ML BOTTLE ONE (12:23)
[2019-11-05] MEDS: DEXT 5%/0.45% NACL 1000ML 1,000 ML IV SCH (13:15)
[2019-11-05 13:37] LABS: HEMATOCRIT 24.3 % (42.0-52.0); HEMOGLOBIN 8.2 g/dL (14.0-18.0); MEAN CORPUSCULAR HEMOGLOBIN 30.4 pg (28.0-32.0); MEAN CORPUSCULAR VOLUME 89.5 fL (80.0-94.0); PLATELET 265 x1000/uL (130-400); RED BLOOD CELL COUNT 2.71 mill/uL (4.7-6.1); RED CELL DISTRIBUTION WIDTH 16.8 % (11.6-14.6)
[2019-11-05 13:48] LABS: INR 1.1; PROTHROMBIN TIME 11.6 sec (9.6-11.0)
[2019-11-05] MEDS ORDERED: FENTANYL CITRATE/PF 50MCG/ML 2ML VIAL ONE (14:57)
[2019-11-05] MEDS ORDERED: MIDAZOLAM HCL 5 MG/5 ML VIAL ONE (14:57)
[2019-11-05] MEDS ORDERED: SIMETHICONE 40 MG/0.6 ML 30ML ONE (14:57)
[2019-11-05 15:19] LABS: FOLIC ACID (FOLATE) SERUM 10.3 ng/mL (>5.38)
[2019-11-05] MEDS ORDERED: MIDAZOLAM HCL 5 MG/5 ML VIAL IV PRN (15:25)
[2019-11-05] MEDS ORDERED: FENTANYL CITRATE/PF 50MCG/ML 2ML VIAL IV PRN (15:27)
[2019-11-05] MEDS: FOLIC ACID/VITAMIN B COMP W-C TABLET PO SCH (18:25)
[2019-11-05] MEDS: ASPIRIN 81MG TABLET PO SCH (18:25)
[2019-11-05] MEDS: HYDROCODONE/ACETAMINOPHEN 10/325MG TABLET PO PRN (19:38)
[2019-11-05] MEDS: DIPHENHYDRAMINE 50MG/ML VIAL IV PRN (22:19)
[2019-11-05] MEDS ORDERED: VANCOMYCIN 1 G PREMIX 200 ML IV NR (23:00)
[2019-11-06] VITALS (13 sets, daily range): BP systolic 145–179; BP diastolic 68–103
[2019-11-06] MEDS: PIPERACILLIN/TAZOBACTAM 2.25 G in DEXTROSE 5% WATER 50 ML IV SCH ×3 (05:06→22:30)
[2019-11-06] MEDS: HYDROCODONE/ACETAMINOPHEN 10/325MG TABLET PO PRN ×2 (05:46→12:51)
[2019-11-06 07:12] LABS: BASOPHILS % 0.8 % (0.0-2.0); EOSINOPHILS % 4.9 % (0.0-5.0); HEMATOCRIT. 24.5 % (42.0-52.0); HEMOGLOBIN. 8.2 g/dL (14.0-18.0); LYMPHOCYTES % 10.9 % (20.0-50.0); MEAN CORPUSCULAR HEMOGLOBIN 30.7 pg (28.0-32.0); MEAN CORPUSCULAR VOLUME 91.1 fL (80.0-94.0); MEAN PLATELET VOLUME 7.2 fl (7.4-10.4); MONOCYTES % 9.4 % (2.0-8.0); PLATELET 262 x1000/uL (130-400); RED BLOOD CELL COUNT 2.69 mill/uL (4.7-6.1); RED CELL DISTRIBUTION WIDTH 16.6 % (11.6-14.6)
[2019-11-06] MEDS: PANTOPRAZOLE SODIUM 40 MG/VIAL IV SCH (08:04)
[2019-11-06] MEDS: FOLIC ACID/VITAMIN B COMP W-C TABLET PO SCH (08:05)
[2019-11-06] MEDS: IRON SUCROSE COMPLEX 100 MG/5 ML ML IV SCH (08:05)
[2019-11-06] MEDS: CINACALCET HCL 30MG TABLET PO SCH (08:05)
[2019-11-06] MEDS: ASPIRIN 81MG TABLET PO SCH (08:05)
[2019-11-06] MEDS: METOPROLOL TARTRATE 50MG TABLET PO SCH ×2 (08:05→21:33)
[2019-11-06] MEDS: DIPHENHYDRAMINE 50MG/ML VIAL IV PRN (09:45)
[2019-11-06] MEDS: OMEPRAZOLE 20MG CAPSULE EXTENDED RELEASE PO SCH ×2 (09:45→21:32)
[2019-11-06] MEDS: AMLODIPINE 5MG TABLET PO SCH ×2 (09:45→21:33)
[2019-11-06] MEDS: SEVELAMER CARBONATE 800 MG TABLET PO SCH (16:33)
[2019-11-06 20:18] LABS: BASOPHILS % 0.8 % (0.0-2.0); EOSINOPHILS % 5.2 % (0.0-5.0); HEMATOCRIT. 27.3 % (42.0-52.0); HEMOGLOBIN. 9.3 g/dL (14.0-18.0); LYMPHOCYTES % 8.3 % (20.0-50.0); MEAN CORPUSCULAR HEMOGLOBIN 30.9 pg (28.0-32.0); MEAN CORPUSCULAR VOLUME 90.2 fL (80.0-94.0); MEAN PLATELET VOLUME 7.1 fl (7.4-10.4); MONOCYTES % 12.5 % (2.0-8.0); NEUTROPHILS % 73.2 % (40.0-76.0); PLATELET 270 x1000/uL (130-400); RED BLOOD CELL COUNT 3.02 mill/uL (4.7-6.1); RED CELL DISTRIBUTION WIDTH 16.8 % (11.6-14.6)
[2019-11-06] MEDS ORDERED: EPOETIN ALFA 4000UNITS/ML VIAL SUBCUT SCH ×2 (21:00)
[2019-11-06] MEDS: HYDROMORPHONE HCL/PF 2MG/ML CPJ IV PRN (22:31)
[2019-11-07] VITALS (12 sets, daily range): BP systolic 142–162; BP diastolic 78–93
[2019-11-07] MEDS: DIPHENHYDRAMINE 50MG/ML VIAL IV PRN ×3 (00:44→22:17)
[2019-11-07] MEDS: HYDROCODONE/ACETAMINOPHEN 10/325MG TABLET PO PRN ×3 (03:40→20:33)
[2019-11-07] MEDS: PIPERACILLIN/TAZOBACTAM 2.25 G in DEXTROSE 5% WATER 50 ML IV SCH ×3 (05:24→22:17)
[2019-11-07] MEDS: OMEPRAZOLE 20MG CAPSULE EXTENDED RELEASE PO SCH ×2 (06:30→20:34)
[2019-11-07] MEDS: HYDROMORPHONE HCL/PF 2MG/ML CPJ IV PRN (07:07)
[2019-11-07] MEDS: AMLODIPINE 5MG TABLET PO SCH ×2 (08:02→20:33)
[2019-11-07] MEDS: SEVELAMER CARBONATE 800 MG TABLET PO SCH ×4 (08:02→17:20)
[2019-11-07] MEDS: METOPROLOL TARTRATE 50MG TABLET PO SCH ×2 (08:02→20:34)
[2019-11-07] MEDS: FOLIC ACID/VITAMIN B COMP W-C TABLET PO SCH (08:02)
[2019-11-07] MEDS: CINACALCET HCL 30MG TABLET PO SCH (08:02)
[2019-11-07] MEDS: IRON SUCROSE COMPLEX 100 MG/5 ML ML IV SCH (08:04)
[2019-11-07] MEDS: ASPIRIN 81MG TABLET PO SCH (08:04)
[2019-11-07] MEDS ORDERED: VANCOMYCIN 1 G PREMIX 200 ML IV SCH (10:00)
[2019-11-07] MEDS: LOSARTAN POTASSIUM 50 MG TABLET PO SCH (11:56)
[2019-11-07] MEDS: METOCLOPRAMIDE HCL 5MG TABLET PO SCH ×2 (15:43→20:34)
[2019-11-07] MEDS: SORBITOL 70% SOLN 30ML PO SCH (17:11)
[2019-11-08] VITALS (12 sets, daily range): BP systolic 134–180; BP diastolic 76–110
[2019-11-08] MEDS: SORBITOL 70% SOLN 30ML PO SCH ×2 (00:17→06:03)
[2019-11-08] MEDS: HYDROMORPHONE HCL/PF 2MG/ML CPJ IV PRN ×3 (00:42→14:07)
[2019-11-08] MEDS: METOCLOPRAMIDE HCL 5MG TABLET PO SCH (04:25)
[2019-11-08] MEDS: PIPERACILLIN/TAZOBACTAM 2.25 G in DEXTROSE 5% WATER 50 ML IV SCH ×2 (06:04→14:16)
[2019-11-08 06:22] LABS: BASOPHILS % 0.9 % (0.0-2.0); EOSINOPHILS % 4.9 % (0.0-5.0); LYMPHOCYTES % 9.2 % (20.0-50.0); MEAN CORPUSCULAR HEMOGLOBIN 30.7 pg (28.0-32.0); MEAN CORPUSCULAR VOLUME 91.5 fL (80.0-94.0); MONOCYTES % 8.4 % (2.0-8.0); NEUTROPHILS % 76.6 % (40.0-76.0); PLATELET 300 x1000/uL (130-400); RED CELL DISTRIBUTION WIDTH 17.4 % (11.6-14.6)
[2019-11-08] MEDS: OMEPRAZOLE 20MG CAPSULE EXTENDED RELEASE PO SCH ×2 (06:33→22:02)
[2019-11-08] MEDS: SEVELAMER CARBONATE 800 MG TABLET PO SCH ×3 (07:20→18:02)
[2019-11-08] MEDS: METOPROLOL TARTRATE 50MG TABLET PO SCH ×2 (09:00→23:03)
[2019-11-08] MEDS: AMLODIPINE 5MG TABLET PO SCH ×2 (09:00→23:04)
[2019-11-08] MEDS: IRON SUCROSE COMPLEX 100 MG/5 ML ML IV SCH (09:17)
[2019-11-08] MEDS ORDERED: BACTERIOSTATIC SODIUM CHLORIDE 0.9% 30ML VIAL IJ ONE (12:58)
[2019-11-08] MEDS ORDERED: MIDAZOLAM HCL 5 MG/5 ML VIAL ONE ×2 (15:02→15:03)
[2019-11-08] MEDS ORDERED: MIDAZOLAM HCL 5 MG/5 ML VIAL IV NR (15:03)
[2019-11-08] MEDS ORDERED: FENTANYL CITRATE/PF 50MCG/ML 2ML VIAL IV PRN (15:03)
[2019-11-08] MEDS ORDERED: FENTANYL CITRATE/PF 50MCG/ML 2ML VIAL ONE (15:03)
[2019-11-08] MEDS ORDERED: LEVOFLOXACIN 750MG PREMIX 150 ML IV NR (18:00)
[2019-11-08] MEDS: FOLIC ACID/VITAMIN B COMP W-C TABLET PO SCH (18:02)
[2019-11-08] MEDS: ASPIRIN 81MG TABLET PO SCH (18:02)
[2019-11-08] MEDS: CINACALCET HCL 30MG TABLET PO SCH (18:02)
[2019-11-08] MEDS: LOSARTAN POTASSIUM 50 MG TABLET PO SCH (18:20)
[2019-11-08] MEDS ORDERED: VANCOMYCIN 500 MG PREMIX 100 ML IV SCH (21:00)
[2019-11-08] MEDS: HYDROCODONE/ACETAMINOPHEN 10/325MG TABLET PO PRN (21:54)
[2019-11-08] MEDS: DIPHENHYDRAMINE 50MG/ML VIAL IV PRN (23:03)
[2019-11-09] VITALS (9 sets, daily range): BP systolic 141–166; BP diastolic 82–94
[2019-11-09] MEDS: HYDROMORPHONE HCL/PF 2MG/ML CPJ IV PRN ×2 (02:53→12:57)
[2019-11-09] MEDS: OMEPRAZOLE 20MG CAPSULE EXTENDED RELEASE PO SCH (06:20)
[2019-11-09 08:31] LABS: BASOPHILS % 0.8 % (0.0-2.0); EOSINOPHILS % 4.1 % (0.0-5.0); HEMATOCRIT. 28.3 % (42.0-52.0); HEMOGLOBIN. 9.4 g/dL (14.0-18.0); LYMPHOCYTES % 8.3 % (20.0-50.0); MEAN CORPUSCULAR HEMOGLOBIN 30.5 pg (28.0-32.0); MEAN CORPUSCULAR VOLUME 91.7 fL (80.0-94.0); MEAN PLATELET VOLUME 7.3 fl (7.4-10.4); NEUTROPHILS % 77.8 % (40.0-76.0); PLATELET 284 x1000/uL (130-400); RED BLOOD CELL COUNT 3.08 mill/uL (4.7-6.1); RED CELL DISTRIBUTION WIDTH 17.7 % (11.6-14.6)
[2019-11-09] MEDS: LOSARTAN POTASSIUM 50 MG TABLET PO SCH (08:37)
[2019-11-09] MEDS: METOPROLOL TARTRATE 50MG TABLET PO SCH (08:37)
[2019-11-09] MEDS: FOLIC ACID/VITAMIN B COMP W-C TABLET PO SCH (08:37)
[2019-11-09] MEDS: SEVELAMER CARBONATE 800 MG TABLET PO SCH ×3 (08:37→17:20)
[2019-11-09] MEDS: CINACALCET HCL 30MG TABLET PO SCH (08:37)
[2019-11-09] MEDS: ASPIRIN 81MG TABLET PO SCH (08:38)
[2019-11-09] MEDS: AMLODIPINE 5MG TABLET PO SCH (12:52)
[2019-11-09] MEDS ORDERED: METO-539 PO (14:29)
[2019-11-09] MEDS ORDERED: HYDR-4009 PO (14:29)
[2019-11-09] MEDS ORDERED: AMLO5TAB88 PO (14:29)
[2019-11-09] MEDS ORDERED: LOSA50TA3 PO (14:29)
[2019-11-09] MEDS ORDERED: ASPI-1160 PO (14:29)
[2019-11-09] MEDS ORDERED: LEVO500T89 MT (14:29)
[2019-11-09] MEDS ORDERED: LOSARTAN POTASSIUM 50 MG TABLET PO SCH (21:00)
[2019-11-10] MEDS ORDERED: LEVOFLOXACIN 500MG PREMIX 100 ML IV SCH (11:00)
[2019-11-11] MEDS ORDERED: EPOETIN ALFA 4000UNITS/ML VIAL SUBCUT SCH (21:00)
== END 2019-11-09 18:09 | disposition home or self-care (01) | DRG 720 ==
LOC: ER 14:41 → 3WST 16:24 → EDBEDREQSVC 11-04 08:56 → ENRESERV 11-04 11:05
PROVIDERS: ADMIT Internal Medicine; ATTEND Internal Medicine
PROC: 30233N1 Transfusion of Nonautologous Red Blood Cells into Peripheral Vein, Percutaneous Approach (ICD-10-PCS; principal; 2019-11-03)
PROC: 5A1D70Z Performance of Urinary Filtration, Intermittent, Less than 6 Hours Per Day (ICD-10-PCS; 2019-11-05)
PROC: 02H633Z Insertion of Infusion Device into Right Atrium, Percutaneous Approach (ICD-10-PCS; 2019-11-05)
PROC: B5181ZA Fluoroscopy of Superior Vena Cava using Low Osmolar Contrast, Guidance (ICD-10-PCS; 2019-11-05)
PROC: B548ZZA Ultrasonography of Superior Vena Cava, Guidance (ICD-10-PCS; 2019-11-05)
PROC: 0DB78ZX Excision of Stomach, Pylorus, Via Natural or Artificial Opening Endoscopic, Diagnostic (ICD-10-PCS; 2019-11-06)
PROC: 0DB98ZX Excision of Duodenum, Via Natural or Artificial Opening Endoscopic, Diagnostic (ICD-10-PCS; 2019-11-06)
PROC: 5A1D70Z Performance of Urinary Filtration, Intermittent, Less than 6 Hours Per Day (ICD-10-PCS; 2019-11-07)
PROC: 0DJD8ZZ Inspection of Lower Intestinal Tract, Via Natural or Artificial Opening Endoscopic (ICD-10-PCS; 2019-11-08)
DX: A41.9 Sepsis, unspecified organism (principal); I21.4 Non-ST elevation (NSTEMI) myocardial infarction; E43 Unspecified severe protein-calorie malnutrition; I13.2 Hypertensive heart and chronic kidney disease with heart failure and with stage 5 chronic kidney disease, or end stage renal disease; I96 Gangrene, not elsewhere classified; N18.6 End stage renal disease; I50.33 Acute on chronic diastolic (congestive) heart failure; Q61.3 Polycystic kidney, unspecified; N25.81 Secondary hyperparathyroidism of renal origin; D53.9 Nutritional anemia, unspecified; K57.90 Diverticulosis of intestine, part unspecified, without perforation or abscess without bleeding; D63.1 Anemia in chronic kidney disease; E78.5 Hyperlipidemia, unspecified; E83.39 Other disorders of phosphorus metabolism; I25.10 Atherosclerotic heart disease of native coronary artery without angina pectoris; K29.60 Other gastritis without bleeding; K44.9 Diaphragmatic hernia without obstruction or gangrene; L97.529 Non-pressure chronic ulcer of other part of left foot with unspecified severity; I70.202 Unspecified atherosclerosis of native arteries of extremities, left leg; K29.30 Chronic superficial gastritis without bleeding; D72.810 Lymphocytopenia; F12.90 Cannabis use, unspecified, uncomplicated; E11.51 Type 2 diabetes mellitus with diabetic peripheral angiopathy without gangrene; J45.909 Unspecified asthma, uncomplicated; F10.11 Alcohol abuse, in remission; Z74.01 Bed confinement status; Z99.2 Dependence on renal dialysis; Z87.891 Personal history of nicotine dependence; Z68.26 Body mass index [BMI] 26.0-26.9, adult; Z79.891 Long term (current) use of opiate analgesic; Z79.899 Other long term (current) drug therapy
CPT/HCPCS: 36415; 36573; 71045; 73630; 74176; 75635; 76881; 76937; 80048; 80053; 80202; 82550; 82553; 82607; 82728; 82746; 83540; 83550; 83605; 83735; 84100; 84145; 84484; 85025; 85027; 85044; 86140; 86850; 86900; 86920; 88305; 88312; 88313; 93005; 93923; 99152; 99291; C1725; C9113; J0885; J1170; J1200; J1956; J2250; J2270; J2405; J2543; J3010; J3370; J3490; J7060; J8597; P9016; Q9967; G0500

== ENCOUNTER → 2020-03-04 | Outpatient (CLI) | payer MEDICAID ==
[~2020-03-04] MED LIST changes: -AMLO5TAB88 MT; -AMOX1TAB16 MT; +CINA30 PO; -DOXY100C2 MT; -ESOM20CA PO; +GABA-529 MT; +HYDR-4135 PO; -HYDR100T26 MT; -LABE200T28 MT; +METO25TA6 PO; +PANT40TA4 PO
== END | disposition home or self-care (01) ==
LOC: LAB 11:39
PROVIDERS: ATTEND Internal Medicine Cardiovascular Disease
DX: Z20.828 Contact with and (suspected) exposure to other viral communicable diseases (principal)
CPT/HCPCS: 87635

== ENCOUNTER 2020-03-06 07:46 | Inpatient (IN) | payer MEDICAID ==
[~2020-03-06] VITALS: Ht 175.3 cm; Wt 78.5 kg
[2020-03-06] VITALS (19 sets, daily range): BP systolic 102–251; BP diastolic 49–187
[~2020-03-06 07:46] MED LIST changes: -HYDR-4135 PO
[2020-03-06] MEDS ORDERED: MIDAZOLAM HCL 2 MG/2 ML VIAL ONE (09:00)
[2020-03-06] MEDS ORDERED: FENTANYL CITRATE/PF 50MCG/ML 2ML VIAL ONE (09:00)
[2020-03-06] MEDS ORDERED: TETRACAINE/BENZOCAINE/BUTAMBEN 20 GM SPRAY MM ONE (09:00)
[2020-03-06] MEDS ORDERED: LIDOCAINE HCL 2% JELLY 5ML ONE (09:02)
[2020-03-06 09:03] LABS: HEMATOCRIT 41.5 % (42.0-52.0); HEMOGLOBIN 13.3 g/dL (14.0-18.0); MEAN CORPUSCULAR HEMOGLOBIN 29.7 pg (28.0-32.0); PLATELET 242 x1000/uL (130-400); RED BLOOD CELL COUNT 4.46 mill/uL (4.7-6.1); RED CELL DISTRIBUTION WIDTH 19.5 % (11.6-14.6)
[2020-03-06] MEDS ORDERED: ONDANSETRON HCL 4MG/2ML INJ ONE (09:48)
[2020-03-06] MEDS ORDERED: METOCLOPRAMIDE HCL 10MG/2ML VIAL IV NR (10:45)
[2020-03-06] MEDS ORDERED: DIPHENHYDRAMINE 50MG/ML VIAL IV PRN (16:15)
[2020-03-06] MEDS ORDERED: ONDANSETRON HCL 4MG/2ML INJ IV PRN (17:45)
[2020-03-06] MEDS ORDERED: IPRATROPIUM/ALBUTEROL 0.5-3(2.5)MG/3ML NEB HHN PRN (19:45)
[2020-03-06] MEDS ORDERED: DOCUSATE SODIUM 100MG CAPSULE PO PRN (19:45)
[2020-03-06] MEDS ORDERED: ACETAMINOPHEN 325MG TABLET PO PRN ×2 (19:45)
[2020-03-06] MEDS ORDERED: HYDROCODONE/ACETAMINOPHEN 5/325MG TABLET PO PRN (19:45)
[2020-03-06] MEDS ORDERED: LORAZEPAM 0.5MG TABLET PO PRN (19:45)
[2020-03-06] MEDS ORDERED: SODIUM POLYSTYRENE SULFONATE 15 G/60 ML BOT PO NR (20:00)
[2020-03-06] MEDS ORDERED: METOPROLOL TARTRATE 25MG TABLET PO SCH (21:00)
[2020-03-06] MEDS: CLONIDINE 0.1MG TABLET PO PRN (23:26)
[2020-03-07] VITALS (11 sets, daily range): BP systolic 125–210; BP diastolic 79–121
[2020-03-07] MEDS ORDERED: MAGNESIUM/ALUMINUM HYDROXIDE/SIMETHICONE 30ML UDC PO PRN (05:15)
[2020-03-07] MEDS ORDERED: HYDRALAZINE HCL 50MG TABLET PO SCH ×2 (06:00→14:00)
[2020-03-07] MEDS: CLONIDINE 0.1MG TABLET PO PRN (06:13)
[2020-03-07 07:29] LABS: CHLORIDE 92 mEq/L (98-107)
[2020-03-07 07:35] LABS: HDL CHOLESTEROL 66 mg/dL (40-59); PHOSPHORUS 6.4 mg/dL (2.5-4.9)
[2020-03-07 07:36] LABS: LDL CHOLESTEROL 66 mg/dL (5-100)
[2020-03-07 08:29] LABS: HEMATOCRIT. 54.5 % (42.0-52.0); HEMOGLOBIN. 17.2 g/dL (14.0-18.0); MEAN CORPUSCULAR HEMOGLOBIN 29.5 pg (28.0-32.0); MEAN CORPUSCULAR VOLUME 93.5 fL (80.0-94.0); MEAN PLATELET VOLUME 8.2 fl (7.4-10.4); PLATELET 150 x1000/uL (130-400); RED BLOOD CELL COUNT 5.83 mill/uL (4.7-6.1); RED CELL DISTRIBUTION WIDTH 20.3 % (11.6-14.6)
[2020-03-07] MEDS: SEVELAMER CARBONATE 800 MG TABLET PO SCH ×2 (08:40→13:03)
[2020-03-07] MEDS ORDERED: CINACALCET HCL 30MG TABLET PO SCH (09:00)
[2020-03-07] MEDS ORDERED: FOLIC ACID/VITAMIN B COMP W-C TABLET PO SCH (09:00)
[2020-03-07] MEDS ORDERED: METOPROLOL TARTRATE 50MG TABLET PO SCH (09:00)
[2020-03-07] MEDS ORDERED: METO25TA6 PO (12:29)
[2020-03-07] MEDS ORDERED: HYDR-4135 PO (12:29)
[2020-03-07] MEDS ORDERED: HYDRALAZINE HCL 100MG TABLET PO SCH (14:00)
[2020-03-07] MEDS ORDERED: METOPROLOL TARTRATE 25MG TABLET PO SCH (21:00)
[2020-03-07 22:23] LABS: PLATELET ESTIMATE NORMAL
== END 2020-03-07 16:14 | disposition home or self-care (01) | DRG 425 ==
LOC: CARD 07:46 → 3WST 07:47
PROVIDERS: ADMIT Internal Medicine; ATTEND Internal Medicine
PROC: 5A1D70Z Performance of Urinary Filtration, Intermittent, Less than 6 Hours Per Day (ICD-10-PCS; principal; 2020-03-06)
DX: E87.5 Hyperkalemia (principal); N25.81 Secondary hyperparathyroidism of renal origin; N18.6 End stage renal disease; J45.909 Unspecified asthma, uncomplicated; I25.10 Atherosclerotic heart disease of native coronary artery without angina pectoris; E87.1 Hypo-osmolality and hyponatremia; D64.9 Anemia, unspecified; R00.0 Tachycardia, unspecified; I16.1 Hypertensive emergency; I34.8 Other nonrheumatic mitral valve disorders; E78.5 Hyperlipidemia, unspecified; I33.0 Acute and subacute infective endocarditis; I48.91 Unspecified atrial fibrillation; E21.3 Hyperparathyroidism, unspecified; E11.22 Type 2 diabetes mellitus with diabetic chronic kidney disease; I77.1 Stricture of artery; I12.0 Hypertensive chronic kidney disease with stage 5 chronic kidney disease or end stage renal disease; Z89.512 Acquired absence of left leg below knee; Z74.01 Bed confinement status; Q61.3 Polycystic kidney, unspecified; Z99.2 Dependence on renal dialysis; Z86.73 Personal history of transient ischemic attack (TIA), and cerebral infarction without residual deficits; Z95.1 Presence of aortocoronary bypass graft
CPT/HCPCS: 36415; 80048; 80053; 80061; 82962; 83036; 83735; 84100; 84132; 84443; 85025; 85027; 93005; J1200; J2250; J2405; J2765; J3010